=== PATIENT | male | born 1935 | race Caucasian/White ===

== ENCOUNTER 2017-05-19 11:32 | Inpatient (IN) | payer OTHER ==
[~2017-05-19] VITALS: Ht 172.7 cm; Wt 105.0 kg
[2017-05-19] VITALS (7 sets, daily range): BP systolic 99–129; BP diastolic 51–69
[2017-05-19] MEDS ORDERED: DUTA0.5C PO (12:24)
[2017-05-19] MEDS ORDERED: ATOR10TA9 PO (12:24)
[2017-05-19] MEDS ORDERED: FLUT9.9S NAS (12:24)
[2017-05-19] MEDS ORDERED: FURO-93 PO (12:24)
[2017-05-19] MEDS ORDERED: TAMS-11 PO (12:24)
[2017-05-19] MEDS ORDERED: SODIUM CHLORIDE FLUSH 10ML SYR IVF ONE (12:30)
[2017-05-19 12:40] LABS: ASPARTATE AMINO TRANSFERASE 19 U/L (15-37); BLOOD UREA NITROGEN 26 mg/dL (7-18)
[2017-05-19] MEDS ORDERED: SODIUM CHLORIDE 0.9% 1,000 ML IV ONE (13:04)
[2017-05-19 13:17] LABS: DIFF TOTAL CELLS COUNTED 100 CELL DIFF
[2017-05-19 13:22] LABS: ANISOCYTOSIS 2+; HYPOCHROMIA 1+; POLYCHROMASIA 1+; TARGET CELLS 1+; VERIFY COUNTS? YES
[2017-05-19] MEDS ORDERED: SODIUM CHLORIDE FLUSH 10ML SYR IVF PRN (13:30)
[2017-05-19] MEDS ORDERED: ACETAMINOPHEN 325 MG TABLET PO PRN (14:00)
[2017-05-19] MEDS ORDERED: DOCUSATE 100 MG CAPSULE PO PRN (14:00)
[2017-05-19] MEDS ORDERED: HYDROcodone/APAP 5/325 TABLET PO PRN (14:00)
[2017-05-19] MEDS ORDERED: ONDANSETRON 2MG/ML, 2ML IVPush PRN (14:00)
[2017-05-19] MEDS ORDERED: POLYETHYLENE GLYCOL 17 GM PACKET PO PRN (14:00)
[2017-05-19] MEDS ORDERED: FLUMAZENIL 0.1 MG/1 ML, 5ML ONE (16:28)
[2017-05-19] MEDS ORDERED: NALOXONE 1 MG/ML, 2ML ONE (16:28)
[2017-05-19] MEDS ORDERED: FENTANYL PF 100 MCG/2ML ONE (16:28)
[2017-05-19] MEDS ORDERED: MIDAZOLAM 1 MG/ML, 5ML ONE (16:28)
[2017-05-19] MEDS ORDERED: VISIPAQUE 320 MG/ML, 150ML BOTTLE ONE (16:30)
[2017-05-19] MEDS ORDERED: VISIPAQUE 320MG/ML, 50ML BOTTLE ONE (16:30)
[2017-05-19] MEDS ORDERED: LIDOCAINE 1%, 20ML ONE (16:34)
[2017-05-19] MEDS: MORPHINE SULFATE 4 MG/ML, 1ML IVPush PRN ×2 (21:01→21:47)
[2017-05-19] MEDS: NS + 20MEQ KCL 1,000 ML IV SCH (21:01)
[2017-05-19] MEDS: PANTOPRAZOLE 40 MG IV IVPush SCH (21:50)
[2017-05-20] VITALS (13 sets, daily range): BP systolic 100–175; BP diastolic 57–91
[2017-05-20] MEDS: LATANOPROST OPHTH 0.005%, 2.5ML EACHEYE SCH ×2 (00:50→21:10)
[2017-05-20 05:42] LABS: BLOOD UREA NITROGEN 19 mg/dL (7-18)
[2017-05-20] MEDS ORDERED: DORZ10DR21 RIGHTEYE (08:52)
[2017-05-20] MEDS: PANTOPRAZOLE 40 MG IV IVPush SCH ×2 (08:55→21:10)
[2017-05-20] MEDS ORDERED: PRED1DRO LEFTEYE (10:34)
[2017-05-20] MEDS: predniSOLONE OPHTH SUSP 1%, 5ML LEFTEYE SCH (12:02)
[2017-05-20] MEDS: NS + 20MEQ KCL 1,000 ML IV SCH (12:02)
[2017-05-20] MEDS: DORZOLAMIDE OPHTH 2%, 10ML RIGHTEYE SCH ×2 (12:02→21:00)
[2017-05-21 02:00] VITALS: BP 149/62
[2017-05-21 07:13] VITALS: BP 127/64
[2017-05-21] MEDS: DORZOLAMIDE OPHTH 2%, 10ML RIGHTEYE SCH ×2 (08:30→21:00)
[2017-05-21] MEDS: predniSOLONE OPHTH SUSP 1%, 5ML LEFTEYE SCH (08:31)
[2017-05-21] MEDS: PANTOPRAZOLE 40 MG IV IVPush SCH ×2 (08:31→21:04)
[2017-05-21 14:09] VITALS: BP 136/66
[2017-05-21 17:39] LABS: DIFF TOTAL CELLS COUNTED 100 CELL DIFF
[2017-05-21 17:46] LABS: VERIFY COUNTS? YES
[2017-05-21 17:49] LABS: ANISOCYTOSIS 1+; HYPOCHROMIA 1+; POIKILOCYTOSIS 1+; POLYCHROMASIA 1+
[2017-05-21 19:38] VITALS: BP 123/57
[2017-05-21] MEDS: LATANOPROST OPHTH 0.005%, 2.5ML EACHEYE SCH (21:05)
[2017-05-22 00:55] VITALS: BP 133/68
[2017-05-22 08:17] VITALS: BP 136/61
[2017-05-22] MEDS: DORZOLAMIDE OPHTH 2%, 10ML RIGHTEYE SCH ×2 (09:30→20:23)
[2017-05-22] MEDS: predniSOLONE OPHTH SUSP 1%, 5ML LEFTEYE SCH (09:30)
[2017-05-22] MEDS: PANTOPRAZOLE 40 MG IV IVPush SCH ×2 (09:30→20:23)
[2017-05-22 14:10] VITALS: BP 111/62
[2017-05-22 18:47] VITALS: BP 148/72
[2017-05-22] MEDS: LATANOPROST OPHTH 0.005%, 2.5ML EACHEYE SCH (20:23)
[2017-05-23 02:25] VITALS: BP 145/85
[2017-05-23 05:11] LABS: BLOOD UREA NITROGEN 18 mg/dL (7-18)
[2017-05-23 07:24] VITALS: BP 137/74
[2017-05-23] MEDS: predniSOLONE OPHTH SUSP 1%, 5ML LEFTEYE SCH (07:54)
[2017-05-23] MEDS: DORZOLAMIDE OPHTH 2%, 10ML RIGHTEYE SCH (07:54)
[2017-05-23] MEDS: PANTOPRAZOLE 40 MG IV IVPush SCH (07:54)
[2017-05-23] MEDS ORDERED: FERR324T5 PO (09:02)
[2017-05-23] MEDS ORDERED: ASCO125T PO (09:02)
== END 2017-05-23 11:22 | disposition home or self-care (01) | DRG 356 ==
LOC: ED 12:47 → EDIP 13:04 → 4WST 18:02
PROVIDERS: ADMIT Hospitalist; ATTEND Family Medicine
PROC: 30233N1 Transfusion of Nonautologous Red Blood Cells into Peripheral Vein, Percutaneous Approach (ICD-10-PCS; principal; 2017-05-19)
PROC: 04L63DZ Occlusion of Right Colic Artery with Intraluminal Device, Percutaneous Approach (ICD-10-PCS; 2017-05-19)
PROC: B4141ZZ Fluoroscopy of Superior Mesenteric Artery using Low Osmolar Contrast (ICD-10-PCS; 2017-05-19)
PROC: B41J1ZZ Fluoroscopy of Other Lower Arteries using Low Osmolar Contrast (ICD-10-PCS; 2017-05-19)
PROC: 30233N1 Transfusion of Nonautologous Red Blood Cells into Peripheral Vein, Percutaneous Approach (ICD-10-PCS; 2017-05-20)
DX: K57.91 Diverticulosis of intestine, part unspecified, without perforation or abscess with bleeding (principal); E43 Unspecified severe protein-calorie malnutrition; D62 Acute posthemorrhagic anemia; E78.5 Hyperlipidemia, unspecified; F10.21 Alcohol dependence, in remission; I10 Essential (primary) hypertension; G47.33 Obstructive sleep apnea (adult) (pediatric); R15.9 Full incontinence of feces; R26.2 Difficulty in walking, not elsewhere classified; K59.00 Constipation, unspecified; Z87.891 Personal history of nicotine dependence; Z68.35 Body mass index [BMI] 35.0-35.9, adult; Z88.8 Allergy status to other drugs, medicaments and biological substances; Z79.899 Other long term (current) drug therapy; Z83.6 Family history of other diseases of the respiratory system
CPT/HCPCS: 36415; 37244; 75726; 78278; 80048; 80053; 83605; 83690; 83735; 85025; 85610; 85730; 86850; 86900; 86923; 93005; 99156; 99157; J2250; J3010; J3480; J3490; Q9967; A9560; C1751; C1769; C9113; C9898; J2310; P9016

== ENCOUNTER → 2017-08-20 | Outpatient (CLI) | payer OTHER ==
[~2017-08-20] MED LIST: ASCO125T PO; ATOR10TA9 PO; DORZ10DR21 RIGHTEYE; DUTA0.5C PO; FERR324T5 PO; FLUT9.9S NAS; FURO-93 PO; PRED1DRO LEFTEYE; TAMS-11 PO
== END | disposition home or self-care (01) ==
LOC: CFH 09:34
PROVIDERS: ATTEND Internal Medicine Cardiovascular Disease
DX: I08.0 Rheumatic disorders of both mitral and aortic valves (principal); I10 Essential (primary) hypertension; I42.9 Cardiomyopathy, unspecified; E78.5 Hyperlipidemia, unspecified; Z87.891 Personal history of nicotine dependence
CPT/HCPCS: 93306